=== PATIENT | male | born 1980 | race Two or more races ===

== ENCOUNTER → 2019-08-08 09:43 | Outpatient (REF) | payer OTHER, SELFPAY | LOC: ANHLAB 09:43 | PROVIDERS: Visit Provider Nurse Practitioner | DX: R22.9 Localized swelling, mass and lump, unspecified (principal); L72.0 Epidermal cyst | CPT/HCPCS: 88304; 88305 ==

== ENCOUNTER → 2019-10-21 08:32 | Outpatient (REF) | payer OTHER, SELFPAY | LOC: ANHLAB 08:32 | PROVIDERS: Visit Provider Nurse Practitioner | DX: D49.2 Neoplasm of unspecified behavior of bone, soft tissue, and skin (principal) | CPT/HCPCS: 88305; 88342 ==

== ENCOUNTER → 2019-12-23 15:23 | Outpatient (REF) | payer OTHER, SELFPAY | LOC: ANHLAB 15:23 | PROVIDERS: PCP Nurse Practitioner Family; Visit Provider Nurse Practitioner | DX: D22.5 Melanocytic nevi of trunk (principal) | CPT/HCPCS: 88305 ==